=== PATIENT | female | born 1980 | race Caucasian/White ===

== ENCOUNTER 2017-03-03 00:24 | Emergency (ER) | payer OTHER ==
[2017-03-03 00:30] VITALS: RESP 16
[2017-03-03] MEDS ORDERED: MAGNESIUM CITRATE 300 ML BOTTLE PO ONE (01:10)
--- NOTE | 2017-03-03 01:12 | EDPHY ---
H & P Stated Complaint: constipation x2+ days, dark red blood from rectum, denies nausea/vomiting Time Seen by Provider: 03/03/17 00:41 HPI/ROS: HPI The patient presents with an episode of bright red blood per rectum just prior to arrival. The patient has constipation at baseline, however it has been worse over the last few days. Her last bowel movement was 2 days ago. Today she was sitting on the toilet for approximately 30 minutes attempting to have a bowel movement and was unable to, instead she passed bright red blood which stained the water in the toilet bowl reddish in color. She did not pass any clots. The bleeding is mostly subsided. This was not painful. She has no history of similar. She thinks she may have a hemorrhoid. She maintains that she eats a poor diet and has not been drinking enough fluids. REVIEW OF SYSTEMS Constitutional: No fever, no chills. Eyes: No discharge. ENT: No sore throat. Cardiovascular: No chest pain, no palpitations. Respiratory: No cough, no shortness of breath. Gastrointestinal: No abdominal pain, no vomiting. Genitourinary: No hematuria. Musculoskeletal: No back pain. Skin: No rashes. Neurological: No headache. PMHx: Healthy PHYSICAL General Appearance: Alert, no distress Eyes: Pupils equal and round no pallor or injection ENT, Mouth: Mucous membranes moist Respiratory: There are no retractions, lungs are clear to auscultation Cardiovascular: Regular rate and rhythm Gastrointestinal: Abdomen is soft and non-tender, no masses, bowel sounds normal Neurological: A&O, moves all extremities Skin: Warm and dry, no rashes Musculoskeletal: Neck is supple non tender Extremities: symmetrical, full range of motion Psychiatric: Patient is oriented X 3, there is no agitation Source: Patient Exam Limitations: No limitations - Personal History LMP (Females 10-55): 1-7 Days Ago Current Tetanus/Diphtheria Vaccine: Yes Current Tetanus Diphtheria and Acellular Pertussis (TDAP): Yes - Medical/Surgical History Hx Asthma: No Hx Chronic Respiratory Disease: No Hx Diabetes: No Hx Cardiac Disease: No Hx Renal Disease: No Hx Cirrhosis: No Hx Alcoholism: No Hx HIV/AIDS: No Hx Splenectomy or Spleen Trauma: No Other PMH: DENIES - Social History Smoking Status: Never smoked Constitutional: Initial Vital Signs Heart Rate 65 03/03/17 00:27 Respiratory Rate 16 03/03/17 00:27 Blood Pressure 113/78 03/03/17 00:27 O2 Sat (%) 95 03/03/17 00:27 O2 Delivery Mode Room Air Allergies/Adverse Reactions: No Known Allergies Allergy (Verified 03/03/17 00:32) Home Medications: Medication Instructions Recorded Bisacodyl [Dulcolax] 10 mg RC BID #30 supp.rect 03/03/17 Polyethylene Glycol 3350 [Miralax 17 gm PO DAILY #30 pkt 03/03/17 17 gm (*)] Medical Decision Making Procedures: Anoscopy performed by me demonstrates internal hemorrhoid with small amount of active bleeding, patient tolerated the procedure well with no immediate complications. Differential Diagnosis: This is a 36-year-old healthy female who presents with several days of constipation, now with bright red blood per rectum. On exam, internal hemorrhoid is visualized. I feel this is likely the result of her bleeding. I have also considered AVM bleeding diverticuli, colon cancer. Plan for treatment with bowel regimen as I think this will improve the majority of her symptoms. I will discharge her with a bottle of magnesium citrate and prescriptions for MiraLax and suppositories. I believe that once her constipation resolves, bleeding from the hemorrhoid will improved. I have given her information for surgical follow-up in case her symptoms persist. - Data Points Medications Given: Discontinued Medications Magnesium Citrate (Magnesium Citrate) 300 ml PO ONCE ONE Stop: 03/03/17 01:11 Last Admin: 03/03/17 01:30 Dose: 300 ml Departure - Departure Disposition: Home, Routine, Self-Care Clinical Impression: Internal hemorrhoid, bleeding Constipation Qualifiers: Constipation type: unspecified constipation type Qualified Code(s): K59.00 - Constipation, unspecified Condition: Good Instructions: Magnesium Citrate (By mouth), Constipation (ED), Hemorrhoids (ED) , High Fiber Diet (ED), Fleet Enema (ED) Additional Instructions: Please return to the emergency room if you're worse in any way. You should follow up with your regular doctor if your symptoms continue. I have also given you a referral to surgery if these hemorrhoids become an ongoing problem for you. Referrals: Liam Valladares MD [Medical Doctor] - As per Instructions Prescriptions: Bisacodyl [Dulcolax] 10 mg RC BID #30 supp.rect Polyethylene Glycol 3350 [Miralax 17 gm (*)] 17 gm PO DAILY #30 pkt
[2017-03-03 01:33] VITALS: BP 112/59; PULSE 75; O2SAT 92
== END 2017-03-03 01:36 | disposition home or self-care (01) ==
PROC: 0DJD8ZZ Inspection of Lower Intestinal Tract, Via Natural or Artificial Opening Endoscopic (ICD-10-PCS; principal; 2017-03-03)
DX: K59.00 Constipation, unspecified (principal); K64.8 Other hemorrhoids

== ENCOUNTER 2019-02-25 19:21 | Emergency (ER) | payer MEDICAID, OTHER ==
[2019-02-25] MEDS ORDERED: NS 1,000 ML IV ONE (19:45)
[2019-02-25 20:26] LABS: PLATELET COUNT 246 10^3/uL (150-400)
[2019-02-25] MEDS ORDERED: CEPHALEXIN 500MG PREPACK#4 BTL TAKEHOME ONE (22:56)
--- NOTE | 2019-02-25 22:56 | EDPHY ---
H & P Stated Complaint: abdominal pain x 2 months, 14 weeks Time Seen by Provider: 02/25/19 19:45 HPI/ROS: Chief complaint: Abdominal pain, approximately 14 weeks History of present illness: This is a 38-year-old female, 5, para 1, miscarriage 1, who is approximately 14 weeks who presents to the emergency department for ongoing abdominal pain. She reports she has had the abdominal pain is centrally her entire . It is been waxing and waning. She has seen her doctor 3 x 4. She has been started on fiber supplement , H2 mario and simethicone, symptoms have improved but symptoms persist. She denies precipitating factors. She denies alleviating factors other than described above. She denies other associated signs or symptoms including no fevers, no nausea, vomiting or diarrhea. No urinary symptoms. She further denies vaginal discharge or bleeding. Review of systems: A 10 point review of systems was obtained and other than described above was negative. - Personal History LMP (Females 10-55): Current Tetanus Diphtheria and Acellular Pertussis (TDAP): Yes - Medical/Surgical History Hx Asthma: No Hx Chronic Respiratory Disease: No Hx Diabetes: No Hx Cardiac Disease: No Hx Renal Disease: No Hx Cirrhosis: No Hx Alcoholism: No Hx HIV/AIDS: No Hx Splenectomy or Spleen Trauma: No Other PMH: acid reflux - Social History Smoking Status: Never smoked - Physical Exam Exam: General Appearance: Alert, no distress. Eyes: Pupils equal and round no pallor or injection. ENT, Mouth: Mucous membranes moist. Respiratory: There are no retractions, lungs are clear to auscultation. Cardiovascular: Regular rate and rhythm. Gastrointestinal: Bowel sounds normal. Abdomen is soft. Other than distention just above the pelvis consistent with a gravid uterus there is no other distention. There is no tenderness. Neurological: Alert and oriented x4. Skin: Warm and dry, no rashes. Musculoskeletal: Neck is supple non tender. Extremities are symmetrical, full range of motion. Psychiatric: Patient is oriented X 3, there is no agitation. Constitutional: Initial Vital Signs Temperature (C) 37.0 C 02/25/19 19:25 Heart Rate 82 02/25/19 19:25 Respiratory Rate 16 02/25/19 19:25 Blood Pressure 109/60 02/25/19 19:25 O2 Sat (%) 97 02/25/19 19:25 O2 Delivery Mode Room Air Allergies/Adverse Reactions: No Known Allergies Allergy (Verified 02/25/19 19:24) Home Medications: Medication Instructions Recorded Acetaminophen [Acetaminophen ER] 02/25/19 Cephalexin [Keflex (*)] 500 mg PO TID 6 Days cap 02/25/19 Ranitidine HCl 02/25/19 Medical Decision Making - Diagnostics Imaging Results: Imaging Impressions Obstetrics Ultrasound 02/25/19 19:45 Impression: 1. Single living breech intrauterine gestation with gestational age of 13 weeks 6 days. Recommend follow-up anatomic survey at 20 weeks. 2. Anterior placenta. No previa. 3. No free fluid or evidence of heterotopic . 4. Normal ovaries. No cyst or torsion. Findings discussed with Emergency Department physician processing assistant, CARLOS Smith at 02/25/2019 22:30. Imaging: Discussed imaging studies w/ scallop dredger Radiologist ED Course/Re-evaluation: Patient is discussed with my secondary supervising physician Dr. Jeremy Escalante. Patient presents to the emergency department with chronic abdominal pain as persisted throughout her . She has no specific complaints in regards to her . She is nontoxic. Her vital signs are stable. Blood studies unremarkable. Ultrasound unremarkable. Urinalysis with bacteria, she will be started on Keflex pending a urine culture. I discussed continuing home medications prescribed by her doctor. She is to follow up with her primary care doctor for recheck. Return precautions are given. The patient voiced understanding and agreement with plan. Differential Diagnosis: Included but not limited to an associated complications, urinary tract infection, constipation, colitis, doubtful more other intra-abdominal problems such as appendicitis - Data Points Laboratory Results: Laboratory Results 02/25/19 20:10 02/25/19 20:10 02/25/19 02/25/19 02/25/19 20:35 20:10 20:10 WBC 8.72 10^3/uL 10^3/uL (3.80-9.50) RBC 4.41 10^6/uL 10^6/uL (4.18-5.33) Hgb 13.2 g/dL g/dL (12.6-16.3) Hct 37.7 % L % (38.0-47.0) MCV 85.5 fL fL (81.5-99.8) MCH 29.9 pg pg (27.9-34.1) MCHC 35.0 g/dL g/dL (32.4-36.7) RDW 12.8 % % (11.5-15.2) Plt Count 246 10^3/uL 10^3/uL (150-400) MPV 10.6 fL fL (8.7-11.7) Neut % (Auto) 64.8 % % (39.3-74.2) Lymph % (Auto) 28.3 % % (15.0-45.0) [place] % (Auto) 4.8 % % (4.5-13.0) Eos % (Auto) 1.6 % % (0.6-7.6) Baso % (Auto) 0.3 % % (0.3-1.7) Nucleat RBC Rel Count 0.0 % % (0.0-0.2) Absolute Neuts (auto) 5.64 10^3/uL 10^3/uL (1.70-6.50) Absolute Lymphs (auto) 2.47 10^3/uL 10^3/uL (1.00-3.00) Absolute Monos (auto) 0.42 10^3/uL 10^3/uL (0.30-0.80) Absolute Eos (auto) 0.14 10^3/uL 10^3/uL (0.03-0.40) Absolute Basos (auto) 0.03 10^3/uL 10^3/uL (0.02-0.10) Absolute Nucleated RBC 0.00 10^3/uL 10^3/uL (0-0.01) Immature Gran % 0.2 % % (0.0-1.1) Immature Gran # 0.02 10^3/uL 10^3/uL (0.00-0.10) Sodium 133 mEq/L L mEq/L (135-145) Potassium 4.1 mEq/L mEq/L (3.5-5.2) Chloride 102 mEq/L mEq/L (97-110) Carbon Dioxide 23 mEq/l mEq/l (22-31) Anion Gap 8 mEq/L mEq/L (6-14) BUN 8 mg/dL mg/dL (7-23) Creatinine 0.5 mg/dL L mg/dL (0.6-1.0) Estimated GFR > 60 Glucose 81 mg/dL mg/dL (70-100) Calcium 9.4 mg/dL mg/dL (8.5-10.4) Urine Color PALE YELLOW Urine Appearance CLEAR Urine pH 6.0 (5.0-7.5) Ur Specific [place] 1.009 (1.002-1.030) Urine Protein NEGATIVE (NEGATIVE) Urine Ketones TRACE H (NEGATIVE) Urine Blood 1+ H (NEGATIVE) Urine Nitrate NEGATIVE (NEGATIVE) Urine Bilirubin NEGATIVE (NEGATIVE) Urine Urobilinogen NEGATIVE EU EU (0.2-1.0) Ur Leukocyte Esterase NEGATIVE (NEGATIVE) Urine RBC 1-3 /hpf /hpf (0-3) Urine WBC 1-3 /hpf /hpf (0-3) Ur Epithelial Cells TRACE /lpf /lpf (NONE-1+) Urine Bacteria 2+ /hpf H /hpf (NONE SEEN) Urine Glucose NEGATIVE (NEGATIVE) Medications Given: Discontinued Medications Cephalexin (Keflex 500 Mg Prepack#4) 1 btl TAKEHOME EDNOW ONE PRN Reason: Protocol Stop: 02/25/19 22:57 Last Admin: 02/25/19 23:15 Dose: 1 btl Sodium Chloride (Ns) 1,000 mls @ 0 mls/hr IV EDNOW ONE; Wide Open PRN Reason: Protocol Stop: 02/25/19 19:46 Last Admin: 02/25/19 20:15 Dose: 1,000 mls Departure - Departure Disposition: Home, Routine, Self-Care Clinical Impression: Abdominal pain Qualifiers: Abdominal location: generalized Qualified Code(s): R10.84 - Generalized abdominal pain UTI (urinary tract infection) Qualifiers: Urinary tract infection type: site unspecified Hematuria presence: with hematuria Qualified Code(s): N39.0 - Urinary tract infection, site not specified ; R31.9 - Hematuria, unspecified; R31.9 - Hematuria, unspecified Condition: Good Instructions: Cephalexin (By mouth), Abdominal Pain in (ED), Urinary Tract Infection in (ED) Additional Instructions: Follow-up with your OBGYN the next 1-2 days for recheck Take antibiotics as prescribed. Please let your doctor know that a urine culture is pending. If symptoms worsen or new symptoms develop return to the emergency room for recheck. Referrals: NONE *PRIMARY CARE P,. [Primary Care Provider] - As per Instructions [facility] [Clinic] - As per Instructions Prescriptions: Cephalexin [Keflex (*)] 500 mg PO TID 6 Days cap
[2019-02-25 23:27] VITALS: BP 95/63
== END 2019-02-25 23:27 | disposition home or self-care (01) ==
DX: R10.84 Generalized abdominal pain (principal); N39.0 Urinary tract infection, site not specified; R31.9 Hematuria, unspecified; Z3A.14 14 weeks gestation of pregnancy